=== PATIENT | male | born 2005 | race Caucasian/White ===

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

== ENCOUNTER 2024-06-24 23:47 | Emergency (ER) | payer MEDICAID ==
[~2024-06-24] VITALS: Ht 185.4 cm; Wt 61.0 kg
[2024-06-24 23:57] VITALS: TEMP 98
[2024-06-25 01:02] VITALS: PULSE 85
[2024-06-25] MEDS ORDERED: normal saline 1000ml 1,000 ML IV ONE (01:35)
[2024-06-25 02:03] LABS: URINE AMPHETAMINE SCREEN NEGATIVE (Neg); URINE BARBITUATE SCREEN NEGATIVE (Neg); URINE BENZODIAZEPINES SCREEN NEGATIVE (Neg); URINE CANNABINOID SCREEN POSITIVE (Neg); URINE COCAINE SCREEN NEGATIVE (Neg); URINE METHADONE SCREEN NEGATIVE (Neg); URINE OPIATE SCREEN NEGATIVE (Neg); URINE PHENCYCLIDINE SCREEN NEGATIVE (Neg)
[2024-06-25 02:19] VITALS: BP 99/59; RESP 12; O2SAT 100
== END 2024-06-25 02:31 | disposition home or self-care (01) ==
LOC: ER 23:48
DX: F10.129 Alcohol abuse with intoxication, unspecified (principal); R11.2 Nausea with vomiting, unspecified; Y90.9 Presence of alcohol in blood, level not specified
CPT/HCPCS: 80305; 99284